=== PATIENT | male | born 1995 | race Caucasian/White ===

== ENCOUNTER 2023-06-24 06:58 | Outpatient (CLI) | payer OTHER ==
--- NOTE | 2023-06-25 13:07 | MRI Report ---
PROCEDURE: Hand RT WO INDICATIONS: HAND INJURY TECHNIQUE: Noncontrast coronal T1 spin echo and T2 fast spin echo with fat saturation, axial proton density fast spin echo and T2 fast spin echo with fat saturation, sagittal T1 spin echo and STIR through the hand and fingers. COMPARISON: None. FINDINGS: Image quality: Excellent. Bones: There is marrow edema involving fifth proximal phalangeal head and neck extending to mid shaft without definite fracture line. Flexion fifth PIP joint is seen. No other area of abnormal marrow si gnal. No no suspicious intraosseous lesion. Interphalangeal joint(s): There is significant soft tissue swelling and edema surrounding fifth PIP j oint with thickened medial and lateral collateral ligaments of fifth PIP joint. No full-thickness lig ament rupture. There is suggestion of torn volar plate of the fifth PIP joint and at its distal inser tion with approximately displaced volar plate. The extensor central slips appear intact on sagittal i mages. Metacarpophalangeal joint(s): The accessory and proper collateral ligaments appear intact, as well a s the volar plate and adjacent deep transverse metacarpal ligaments. The sagittal bands of the exten sor casiano appear normal. Extensor apparatus: The central slips insert normally on the middle phalangeal base. The conjoint a nd terminal tendons insert normally on the distal phalangeal bases. More proximal portions of the ex tensor tendons also appear normal. Flexor apparatus: Thickened the flexor tendons of the fifth digit at the level of fifth PIP joint and proximal phalanx is seen. There is suggestion of ruptured A2, A3 and C1 pulleys with fluid deep to t he flexor tendons over fifth PIP joint and proximal phalangeal shaft. Soft tissues: Visualized muscles demonstrate normal bulk and internal signal. No intramuscular mass es identified. No ganglion cysts. IMPRESSION: 1. Suggestion of bony contusion versus incomplete fracture involving fifth proximal phalangeal neck a nd distal shaft with marrow edema and surrounding soft tissue edema. No other fracture or dislocation . Flexion at fifth PIP joint. 2. Significant soft tissue swelling and edema surrounding fifth PIP joint with low to moderate grade sprain involving medial and lateral collateral ligaments of fifth PIP joint. 3. Suggestion of torn volar plate of fifth PIP joint at its distal insertion. 4. Suggestion of ruptured A2, A3 and C1 pulleys the fifth digit as above. 5. Tendinosis involving flexor tendons of the fifth digit at the level of fifth PIP joint and fifth p roximal phalangeal shaft. The extensor tendons are intact. Reviewed by: Christophe Roque MD on 06/25/2023 1:06 PM PST Approved by: Christophe Roque MD on 06/25/2023 1:06 PM [facility] Station ID: [id number]
== END 2023-06-24 06:59 | disposition home or self-care (01) ==
LOC: DI 06:58
DX: S63.591A Other specified sprain of right wrist, initial encounter (principal); M67.843 Other specified disorders of tendon, right hand